=== PATIENT | female | born 1985 | race Caucasian/White ===

== ENCOUNTER 2020-08-17 10:51 | Emergency (ER) | payer BC, OTHER ==
[~2020-08-17] VITALS: Ht 165 cm; Wt 96.9 kg
--- NOTE | 2020-08-17 11:15 | ED General ---
General Chief Complaint: Neurological Problems Stated Complaint: HIGH BP History of Present Illness Date Seen by Provider: Aug 17, 2020 Time Seen by Provider: 11:15 Initial Comments 35-year-old female presents with some "tongue thickening, some numbness on her left arm and side of her face. Patient reports that she was "presenting her at the hospital when it happened. She has a history of migraines. She has had a couple similar episodes in the past and had an MRI within the last couple months that was negative. Patient was concerned with a blood pressure up in the systolics of the 150s. Patient denies any recent illness, no nausea vomiting fevers or chills. Patient does not have any focal weakness or deficits. Patient without chest pain, shortness of breath.. Allergies and Home Medications Allergies Coded Allergies: No Known Drug Allergies (Unverified , 08/17/20) Patient Home Medication List Home Medication List Reviewed: Yes Review of Systems Review of Systems Constitutional: No chills, No fever, No weakness EENTM: see HPI Respiratory: no symptoms reported Gastrointestinal: no symptoms reported Musculoskeletal: no symptoms reported Skin: no symptoms reported Psychiatric/Neurological: See HPI Hematologic/Lymphatic: No Symptoms Reported Immunological/Allergic: no symptoms reported Past [facility] Hx Past Med/Social Hx: Reviewed Nursing Past Med/Soc Hx Physical Exam Vital Signs Vital Signs - First Documented 08/17/20 11:08 Temp 36.6 Pulse 99 Resp 19 B/P (MAP) 147/102 (117) Pulse Ox 97 O2 Delivery Room Air Capillary Refill : Height, Weight, BMI Height: '" Weight: lbs. oz. 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 Norm as Tested Skin: Normal Color, Warm/Dry Progress/Results/Core Measures Suspected Sepsis SIRS Temperature: Pulse: Respiratory Rate: Laboratory Tests 08/17/20 11:22: White Blood Count 6.5 Blood Pressure / Mean: Laboratory Tests 08/17/20 11:22: Creatinine 0.85, Platelet Count 251, Total Bilirubin 0.3 Results/Orders Lab Results Laboratory Tests Test 08/17/20 11:22 Range/Units White Blood Count 6.5 4.3-11.0 10^3/uL Red Blood Count 4.91 4.35-5.85 10^6/uL Hemoglobin 14.5 11.5-16.0 G/DL Hematocrit 42 35-52 % Mean Corpuscular Volume 85 80-99 FL Mean Corpuscular Hemoglobin 30 25-34 PG Mean Corpuscular Hemoglobin Concent 35 32-36 G/DL Red Cell Distribution Width 12.5 10.0-14.5 % Platelet Count 251 130-400 10^3/uL Mean Platelet Volume 10.5 H 7.4-10.4 FL Immature Granulocyte % (Auto) 0 % Neutrophils (%) (Auto) 68 42-75 % Lymphocytes (%) (Auto) 23 12-44 % Monocytes (%) (Auto) 7 0-12 % Eosinophils (%) (Auto) 1 0-10 % Basophils (%) (Auto) 0 0-10 % Neutrophils # (Auto) 4.5 1.8-7.8 X 10^3 Lymphocytes # (Auto) 1.5 1.0-4.0 X 10^3 Monocytes # (Auto) 0.5 0.0-1.0 X 10^3 Eosinophils # (Auto) 0.0 0.0-0.3 10^3/uL Basophils # (Auto) 0.0 0.0-0.1 10^3/uL Immature Granulocyte # (Auto) 0.0 0.0-0.1 10^3/uL Sodium Level 137 135-145 MMOL/L Potassium Level 3.5 L 3.6-5.0 MMOL/L Chloride Level 99 98-107 MMOL/L Carbon Dioxide Level 25 21-32 MMOL/L Anion Gap 13 5-14 MMOL/L Blood Urea Nitrogen 19 H 7-18 MG/DL Creatinine 0.85 0.60-1.30 MG/DL Estimat Glomerular Filtration Rate > 60 BUN/Creatinine Ratio 22 Glucose Level 112 H 70-105 MG/DL Calcium Level 9.0 8.5-10.1 MG/DL Corrected Calcium 8.5-10.1 MG/DL Magnesium Level 1.6 1.6-2.4 MG/DL Total Bilirubin 0.3 0.1-1.0 MG/DL Aspartate Amino Transf (AST/SGOT) 32 5-34 U/L Alanine Aminotransferase (ALT/SGPT) 53 0-55 U/L Alkaline Phosphatase 73 40-136 U/L Troponin I < 0.30 <0.30 NG/ML C-Reactive Protein 0.29 <0.50 MG/DL Total Protein 7.2 6.4-8.2 GM/DL Albumin 4.6 H 3.2-4.5 GM/DL My Orders Orders - SILVANO MORSE DO Cbc With Automated Diff (08/17/20 11:15) Comprehensive Metabolic Panel (08/17/20 11:15) Magnesium (08/17/20 11:15) Crp Fs (08/17/20 11:15) Troponin I Fs (08/17/20 11:15) Ekg Tracing (08/17/20 11:16) Monitor-Rhythm Ecg Trace Only (08/17/20 11:16) Ketorolac Injection (Toradol Injection) (08/17/20 11:16) Diphenhydramine Injection (Benadryl Inje (08/17/20 11:16) Vital Signs/I&O 08/17/20 11:08 Temp 36.6 Pulse 99 Resp 19 B/P (MAP) 147/102 (117) Pulse Ox 97 O2 Delivery Room Air Capillary Refill : Progress Note : Progress Note Patient symptoms resolved with treatment for migraine. Patient was given Toradol and Benadryl. 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 Patient was Jeff september in the past due to her chronic headaches. Recommend she follow-up with her primary care provider for recheck of symptom Departure Impression Primary Impression: Migraine Qualified Codes: G43.109 - Migraine with aura, not intractable, without status migrainosus Disposition: HOME, SELF-CARE Condition: Stable Departure-Patient Inst. Referrals: DIAMOND STANLEY APRN (PCP) Primary Care Physician [facility]/MICHELLE (Family) Primary Care Physician Patient Instructions: Migraines in Adults, How to Keep Track of Your Headaches Add. Discharge Instructions: Follow-up with your primary care provider next week for recheck of today's complaints and continuation of care All discharge instructions reviewed with patient and/or family. Voiced understanding. SILVANO MORSE DO Aug 17, 2020 11:15
[2020-08-17] MEDS ORDERED: diphenhydrAMINE 50 MG/ML INJ (BENADRYL) IV STA (11:16)
[2020-08-17] MEDS ORDERED: KETOROLAC 30 MG/ML VIAL IV STA (11:16)
[2020-08-17 11:32] LABS: BASOPHILS % (AUTO) 0 % (0-10); EOSINOPHILS % (AUTO) 1 % (0-10); HEMATOCRIT 42 % (35-52); HEMOGLOBIN 14.5 G/DL (11.5-16.0); LYMPHOCYTES % (AUTO) 23 % (12-44); MEAN CORPUSCULAR HEMOGLOBIN 30 PG (25-34); MEAN CORPUSCULAR HGB CONC 35 G/DL (32-36); MEAN CORPUSCULAR VOLUME 85 FL (80-99); MEAN PLATELET VOLUME 10.5 FL (7.4-10.4); MONOCYTES % (AUTO) 7 % (0-12); NEUTROPHILS % (AUTO) 68 % (42-75); PLATELET COUNT 251 10^3/uL (130-400); WHITE BLOOD COUNT 6.5 10^3/uL (4.3-11.0)
[2020-08-17 11:33] LABS: LYMPHOCYTES # (AUTO) 1.5 X 10^3 (1.0-4.0); MONOCYTES # (AUTO) 0.5 X 10^3 (0.0-1.0); NEUTROPHILS # (AUTO) 4.5 X 10^3 (1.8-7.8)
[2020-08-17 11:51] LABS: BUN/CREATININE RATIO 22; CARBON DIOXIDE 25 MMOL/L (21-32); CHLORIDE 99 MMOL/L (98-107); CREATININE SERUM 0.85 MG/DL (0.60-1.30); GFR ESTIMATED > 60; POTASSIUM 3.5 MMOL/L (3.6-5.0); SODIUM 137 MMOL/L (135-145)
[2020-08-17 11:52] LABS: ALANINE AMINOTRANSFERASE 53 U/L (0-55); ALBUMIN 4.6 GM/DL (3.2-4.5); ALKALINE PHOSPHATASE 73 U/L (40-136); BILIRUBIN,TOTAL 0.3 MG/DL (0.1-1.0); GLUCOSE 112 MG/DL (70-105); MAGNESIUM 1.6 MG/DL (1.6-2.4); TOTAL PROTEIN 7.2 GM/DL (6.4-8.2)
[2020-08-17 12:47] VITALS: BP 132/100
== END 2020-08-17 12:47 | disposition home or self-care (01) ==
LOC: ER FS 10:54
DX: G43.909 Migraine, unspecified, not intractable, without status migrainosus (principal); I10 Essential (primary) hypertension
CPT/HCPCS: 36415; 80053; 83735; 84484; 85025; 86141; 93041